=== PATIENT | female | born 1960 | race Caucasian/White ===

== ENCOUNTER 2019-01-27 20:41 | Emergency (ER) | payer OTHER ==
[~2019-01-27 20:41] MED LIST: ISOVUE-370 76%-LOCM 1 ML ONE
[2019-01-27 21:42] LABS: #Eosinphils 0.1 thou/uL (0.0-0.7); #Lymphocytes 1.4 thou/uL (1.20-3.40); #Monocytes 0.5 thou/uL (0.11-0.59); %Basophils 0.7 % (0.0-1.0); %Eosinophils 1.8 % (0.0-10.0); %Lymphocytes 19.7 % (21.0-51.0); %Monocytes 7.2 % (0.0-10.0); %Neutrophils 70.6 % (42.0-75.0); Hemoglobin 13.8 g/dL (12.0-16.0); Mean Corpuscular HGB CONC 34.9 g/dL (32.0-36.0); Mean Corpuscular Hemoglobin 31.9 pg (27.0-31.0); Mean Corpuscular Volume 91.4 fL (78.0-98.0); Platelet Count 214 thou/uL (130-400); RBC Distribution Width 11.8 % (11.5-14.5); Red Blood Cell (RBC) Count 4.31 mill/uL (4.20-5.40); White Blood Cell (WBC) Count 7.1 thou/uL (4.8-10.8)
[2019-01-27 22:00] LABS: ALT (SGPT) 28 U/L (8-55); AST (SGOT) 24 U/L (5-34); Albumin 4.2 g/dL (3.5-5.0); Alkaline Phosphatase 88 U/L (40-150); Anion Gap 15 mmol/L (10-20); BUN (Urea Nitrogen) 20 mg/dL (9.8-20.1); Bilirubin, Total 0.2 mg/dL (0.2-1.2); Calc. Creatinine Clearance 0 mL/min (70-130); Calcium 8.9 mg/dL (7.8-10.44); Carbon Dioxide 24 mmol/L (22-29); Chloride 104 mmol/L (98-107); Estimated GFR-MDRD 53; Globulin 2.5 g/dL (2.4-3.5); Glucose 101 mg/dL (70-105); Lipase 27 U/L (8-78); Potassium 3.8 mmol/L (3.5-5.1); Protein, Total 6.7 g/dL (6.0-8.3); Sodium 139 mmol/L (136-145)
--- NOTE | 2019-01-27 22:07 | RAD ---
RADIOGRAPH CHEST 1 VIEW: DATE: 01/27/2019 HISTORY: 58-year-old female with chest pain and dyspnea COMPARISON: None available FINDINGS: There are no airspace densities, pulmonary edema, pneumothorax, or cardiomegaly. The lateral costophr enic angles are sharp. At midline in the lower chest at the level of the diaphragm, there is an approximately 5 x 4.5 cm masslike opacity IMPRESSION: 1. No acute cardiopulmonary findings. 2. Questionable small to moderate-sized hiatal hernia.
--- NOTE | 2019-01-27 23:25 | CT ---
CT angiogram thorax with contrast CT angiogram abdomen with contrast: HISTORY: 58-year-old female with dyspnea and chest pain TECHNIQUE: IV injection of iodinated contrast. Arterial bolus chasing technique. Scan acquisition from top of aortic arch to iliac crests. 3-D MIP reconstructions. FINDINGS: There is no aortic dissection, aneurysm, or rupture. No significant calcified aortic atheromatous duane que except smaller one at the aortic arch. No pulmonary thromboembolism in the pulmonic trunk, left and right main pulmonary arteries, or their proximal branches. Distal branches are difficult to evalu ate for pulmonary thromboembolism because the bolus timing was targeted for the aorta. Herniation of approximately 15-20% of the stomach into the lower chest. Trachea and major bronchi are patent and clear. No consolidation, pneumothorax, pleural effusion, or pneumothorax. No pericardial effusion or cardiomegaly. No compression fracture of thoracic spine. Celiac artery and superior mesenteric art kulwant appear normal. There is a 1 cm small subcapsular focal fatty lesion at dome of right lobe of liver containing a punctate tiny calcification. Etiology uncertain, but possibly a tiny dermoid. With in the limitations of an arterial phase only scan, no other significant abnormality identified involving the rest of the liver, bilateral kidneys, adrenals, pancreas, or spleen. No free fluid or a bscess identified within upper abdominal cavity. Multiple mildly enlarged mesenteric lymph nodes in right-sided abdominal cavity. No small bowel dilation. No pneumoperitoneum identified. IMPRESSION: 1. No aortic dissection, aneurysm, or rupture. 2. [id number] hiatal hernia. 3. No acute findings.
[2019-01-28 01:21] LABS: Troponin I 0.012 ng/mL (< 0.028)
== END 2019-01-28 01:41 | disposition home or self-care (01) ==
LOC: ERS 20:41
DX: K44.9 Diaphragmatic hernia without obstruction or gangrene (principal); M54.9 Dorsalgia, unspecified; E78.5 Hyperlipidemia, unspecified; E78.00 Pure hypercholesterolemia, unspecified; I10 Essential (primary) hypertension
CPT/HCPCS: 36415; 71045; 71275; 80053; 83690; 84484; 85025; 93005; Q9966